=== PATIENT | male | born 1965 | race Caucasian/White ===

== ENCOUNTER 2016-10-11 12:08 | Emergency (ER) | payer MEDICARE, MEDICAID ==
[~2016-10-11] VITALS: Ht 180.3 cm; Wt 112.8 kg
[~2016-10-11 12:08] MED LIST: IBUP800T23 PO; PRED50 PO; ZITH250T PO
[2016-10-11 12:13] VITALS: BP 123/91; PULSE 77; RESP 16; TEMP 97.7; O2SAT 96
--- NOTE | 2016-10-11 12:23 | PD ---
HPI Chief Complaint: Respiratory Symptoms Time Seen by Provider: 12:23 Travel History International Travel<30 days: No Contact w/Intl Traveler<30days: No Traveled to known affect area: No History of Present Illness HPI 51-year-old male with history of asthma presents the emergency department with 3 day history of increasing sinus congestion, cough, and wheezing. Patient states he has been using his rescue inhaler and nebulizer more frequently at home. Patient states he has a history of needing prednisone and antibiotics for this type of thing. Patient denies significant fever, productive cough, nausea, vomiting, or diarrhea. He has no chest pain. He is allergic to penicillin. PFSH Past Medical History Anemia: Yes Asthma: Yes Diminished Hearing: No Gastrointestinal Disorders: Yes (HEMORRHOIDS) GERD: Yes Musculoskeletal: Yes (SCIATICA) Respiratory: Yes (asthma) Immunizations Current: Yes Social History Alcohol Use: No Tobacco Use: No Substance Use: No Allergies-Medications (Allergen,Severity, Reaction): Coded Allergies: Penicillin (Verified Allergy, Intermediate, HIVES, 10/11/16) Reported Meds & Prescriptions Reported Meds & Active Scripts Active Prednisone 20 Mg Tab 20 Mg PO BID Azithromycin 500 Mg Tab 500 Mg PO DAILY Reported Advair Diskus Inh (Fluticasone-Salmeterol Inh) 250-50 Mcg/Blist Aer 1 Puff INH BID Rinse mouth after use. Spiriva Handihaler (Tiotropium Inh) 18 Mcg Cap 18 Mcg INH DAILY 1 capsule = 18 mcg Review of Systems Except as stated in HPI: all other systems reviewed are Neg General / Constitutional: No: Fever Eyes: No: Visual changes HENT: Positive: Headaches, Sore Throat, Rhinitis, Rhinorrhea, Congestion, Earache, No: Nosebleed, Neck Stiffness, Neck Pain, Gingival Bleeding, Dental Difficulties, Ear Discharge Cardiovascular: No: Chest Pain or Discomfort Respiratory: Positive: Cough, Shortness of Breath, Wheezing, No: Sneezing Gastrointestinal: No: Nausea, Vomiting, Diarrhea, Abdominal Pain Genitourinary: No: Dysuria Musculoskeletal: No: Pain Skin: No Rash Neurologic: No: Weakness Psychiatric: No: Depression Endocrine: No: Polydipsia Hematologic/Lymphatic: No: Easy Bruising Physical Exam Narrative GENERAL: Patient appears in no acute distress. SKIN: Warm and dry. Normal color. Normal turgor. HEAD: Atraumatic. Normocephalic. EYES: Pupils equal and round. No scleral icterus. No injection or drainage. ENT: No nasal bleeding. Mucous membranes pink and moist. Patient has milky rhinitis and sinus tenderness with palpation both frontal and maxillary sinuses. Pharynx shows mild erythema and cobblestoning posterior pharynx with small amount of postnasal drip noted. No significant lymphadenopathy. Airway is patent. NECK: Trachea midline. Supple nontender without significant lymphadenopathy. CARDIOVASCULAR: Regular rate and rhythm. RESPIRATORY: No accessory muscle use. Mild to moderate diffuse wheezes throughout to auscultation. No rales or rhonchi. Breath sounds equal bilaterally. MUSCULOSKELETAL: Extremities without clubbing, cyanosis, or edema. No obvious deformities. NEUROLOGICAL: Awake and alert. No obvious cranial nerve deficits. Motor grossly within normal limits. Five out of 5 muscle strength in the arms and legs. Normal speech. PSYCHIATRIC: Appropriate mood and affect; insight and judgment normal. Data Data Last Documented VS Vital Signs Date Time Temp Pulse Resp B/P Pulse Ox O2 Delivery O2 Flow Rate FiO2 10/11/16 12:13 97.7 77 16 123/91 96 Orders Albuterol-Ipratropium Neb (Duoneb Neb) (10/11/16 12:30) Dexamethasone Inj (Decadron Inj) (10/11/16 12:30) MDM Medical Decision Making Medical Screen Exam Complete: Yes Emergency Medical Condition: Yes Medical Record Reviewed: Yes Differential Diagnosis Upper respiratory infection. Asthma with acute exacerbation. Wheezing. Narrative Course Patient is medically stable at time of exam. Patient given 125 mg Solu-Medrol IM as well as DuoNeb 1. Patient will be continued on azithromycin 500 mg once daily for 5 days. Patient also to take prednisone 20 mg twice a day for 5 days. Patient should continue his albuterol and DuoNeb nebulizers as needed. Patient follow with his primary care physician or housekeeping aide as needed. Patient can return the emergency Department with worsening symptoms if necessary. Diagnosis Primary Impression: Asthma with acute exacerbation in adult Additional Impression: Upper respiratory infection Qualified Code: J06.9 - Upper respiratory tract infection, unspecified type Referrals: Primary Care Physician Dough Molder Patient Instructions: Asthma (ED), General Instructions, Wheezing (ED) Additional Instructions: Patient given 125 mg Solu-Medrol IM as well as DuoNeb 1. Patient will be continued on azithromycin 500 mg once daily for 5 days. Patient also to take prednisone 20 mg twice a day for 5 days. Patient should continue his albuterol and DuoNeb nebulizers as needed. Patient follow with his primary care physician or housekeeping aide as needed. Patient can return the emergency Department with worsening symptoms if necessary. Med/Other Pt SpecificInfo: Prescription(s) given Scripts Prednisone 20 Mg Tab20 Mg PO BID #10 TAB Prov:Nelson Garibay MD 10/11/16 Azithromycin 500 Mg [id number] Mg PO DAILY #5 TAB Ref 0 Prov:Nelson Garibay MD 10/11/16 Disposition: 01 DISCHARGE HOME Condition: Stable Richie Quinn October 11, 2016 12:23
[2016-10-11] MEDS ORDERED: RESP: ALBUTEROL 2.5 MG/IPRATROPIUM 0.5 MG NEB (SCH) INH ONE (12:30)
[2016-10-11] MEDS ORDERED: DEXAMETHASONE SOD PHOS 20 MG/5 ML VIAL IM ONE (12:30)
[2016-10-11] MEDS ORDERED: ADVA250A INH (12:32)
[2016-10-11] MEDS ORDERED: SPIRCAP INH (12:32)
[2016-10-11] MEDS ORDERED: AZIT500T2 PO (12:52)
[2016-10-11] MEDS ORDERED: PRED20 PO (12:52)
[2016-10-11 14:10] VITALS: BP 120/86
== END 2016-10-11 14:10 | disposition home or self-care (01) ==
LOC: PHEFT 12:08
DX: J45.901 Unspecified asthma with (acute) exacerbation (principal); J06.9 Acute upper respiratory infection, unspecified; D64.9 Anemia, unspecified
CPT/HCPCS: 94664; 96372; 99283; J1100

== ENCOUNTER 2017-03-26 13:47 | Emergency (ER) | payer MEDICARE, MEDICAID ==
[~2017-03-26] VITALS: Ht 180.3 cm; Wt 112.0 kg
[~2017-03-26 13:47] MED LIST changes: +ADVA250A INH; +AZIT500T2 PO; -IBUP800T23 PO; +PRED20 PO; -PRED50 PO; +SPIRCAP INH; -ZITH250T PO
[2017-03-26 13:49] VITALS: BP 134/88; PULSE 89; RESP 18; TEMP 98.4; O2SAT 94
[2017-03-26] MEDS ORDERED: PRED20 PO ×2 (14:24)
--- NOTE | 2017-03-26 14:29 | PD ---
HPI Chief Complaint: Cold / Flu Symptoms Time Seen by Provider: 14:09 Travel History International Travel<30 days: No Contact w/Intl Traveler<30days: No Traveled to known affect area: No History of Present Illness HPI This patient complains of shortness of breath and wheezing. He has history of asthma. He's had some runny nose and congestion lately. No fever. Duration 2 days. Symptoms partially alleviated by his nebulizer treatments. PFSH Past Medical History Anemia: Yes Asthma: Yes Diminished Hearing: No Gastrointestinal Disorders: Yes (HEMORRHOIDS) GERD: Yes Musculoskeletal: Yes (SCIATICA) Respiratory: Yes (asthma) Immunizations Current: Yes Social History Alcohol Use: No Tobacco Use: No Substance Use: No Allergies-Medications (Allergen,Severity, Reaction): Coded Allergies: penicillin G (Unverified Allergy, Intermediate, HIVES, 03/26/17) Reported Meds & Prescriptions Reported Meds & Active Scripts Active Prednisone 20 Mg Tab 20 Mg PO BID Reported Advair Diskus Inh (Fluticasone-Salmeterol Inh) 250-50 Mcg/Blist Aer 1 Puff INH BID Rinse mouth after use. Spiriva Handihaler (Tiotropium Inh) 18 Mcg Cap 18 Mcg INH DAILY 1 capsule = 18 mcg Review of Systems General / Constitutional: No: Fever HENT: Positive: Rhinorrhea, No: Headaches Cardiovascular: No: Chest Pain or Discomfort Respiratory: Positive: Cough, Shortness of Breath, Wheezing Gastrointestinal: No: Abdominal Pain Genitourinary: No: Decreased Urinary Output Physical Exam Narrative GENERAL: Well-nourished, well-developed patient in no apparent distress. SKIN: Focused skin assessment reveals no rash and nodules. Skin is Warm and dry. HEAD: Atraumatic. Normocephalic. EYES: Pupils equal and round. No scleral icterus. No injection or drainage. ENT: No nasal bleeding or discharge. Mucous membranes pink and moist. NECK: Trachea midline. No JVD. CARDIOVASCULAR: Regular rate and rhythm. No murmur appreciated. RESPIRATORY: No accessory muscle use. Some expiratory wheezing noted. Breath sounds equal bilaterally. GASTROINTESTINAL: Abdomen soft, non-tender, nondistended. Hepatic and splenic margins not palpable. MUSCULOSKELETAL: No obvious deformities. No clubbing. No cyanosis. No edema. NEUROLOGICAL: Awake and alert. No obvious cranial nerve deficits. Motor grossly within normal limits. Normal speech. PSYCHIATRIC: Appropriate mood and affect; insight and judgment normal. Data Data Last Documented VS Vital Signs Date Time Temp Pulse Resp B/P (MAP) Pulse Ox O2 Delivery O2 Flow Rate FiO2 03/26/17 13:58 81 20 96 Room Air 03/26/17 13:49 98.4 134/88 (103) Orders Orders Methylprednisolone So Succ Inj (Solumedr (03/26/17 14:30) Albuterol-Ipratropium Neb (Duoneb Neb) (03/26/17 14:30) MDM Medical Decision Making Medical Screen Exam Complete: Yes Emergency Medical Condition: Yes Medical Record Reviewed: Yes Differential Diagnosis Asthma exacerbation, bronchitis, URI, pneumonia Narrative Course I have reviewed the patient's electronic medical record. Presentation is consistent with a asthma exacerbation set off by viral respiratory illness I gave him a nebulizer treatment Gave him injection of Solu-Medrol Prescription for prednisone for 5 days written He has a nebulizer and inhaler with him and is nonsmoker Diagnosis Primary Impression: Asthma with acute exacerbation in adult Qualified Codes: J45.41 - Moderate persistent asthma with (acute) exacerbation Additional Impression: Upper respiratory infection Qualified Codes: J00 - Acute nasopharyngitis [common cold] Additional Instructions: The patient was advised to follow up with their physician and return if they worsen. Med/Other Pt SpecificInfo: Prescription(s) given Scripts Prednisone (Prednisone) 20 Mg Tab 20 MG PO BID, #10 TAB Prov: Dipesh Alcaraz MD 03/26/17 Disposition: 01 DISCHARGE HOME Condition: Stable Dipesh Alcaraz MD Mar 26, 2017 14:29
[2017-03-26] MEDS ORDERED: methylPREDNISolone SOD SUCC 125 MG/2 ML VIAL IM ONE ×2 (14:30)
[2017-03-26] MEDS ORDERED: RESP: ALBUTEROL 2.5 MG/IPRATROPIUM 0.5 MG NEB (SCH) NEB ONE ×2 (14:30)
== END 2017-03-26 15:03 | disposition home or self-care (01) ==
LOC: NEPD 13:47
DX: J45.41 Moderate persistent asthma with (acute) exacerbation (principal); J06.9 Acute upper respiratory infection, unspecified
CPT/HCPCS: 94664; 96372; 99284; J2930

== ENCOUNTER 2017-07-14 11:06 | Emergency (ER) | payer MEDICARE, MEDICAID ==
[~2017-07-14 11:06] MED LIST changes: -AZIT500T2 PO
[2017-07-14 11:17] VITALS: BP 123/89; PULSE 78; RESP 22; TEMP 98; O2SAT 95
[2017-07-14] MEDS ORDERED: NEBUMIS6 (11:22)
[2017-07-14] MEDS ORDERED: VENTAER INH (11:22)
--- NOTE | 2017-07-14 11:43 | PD ---
HPI Chief Complaint: Respiratory Symptoms Time Seen by Provider: 11:27 Travel History International Travel<30 days: No Contact w/Intl Traveler<30days: No Traveled to known affect area: No History of Present Illness HPI Patient is a 51-year-old male who comes in complaining of an asthma exacerbation for 30 minutes. He says it started while he was walking because his car broke down. He says he thinks it is due to stress. He did not have his albuterol inhaler with him, so he was unable to use it. He tried using his mother's inhaler, which she says is not the same and did not help. He says he had a cold last week, but it is improving. He says this feels like his typical asthma. He denies chest pain or leg swelling. He denies fever or chills. Nothing seems to improve his symptoms. Severity is moderate. PFSH Past Medical History Anemia: Yes Asthma: Yes Diminished Hearing: No Gastrointestinal Disorders: Yes (HEMORRHOIDS) GERD: Yes Musculoskeletal: Yes (SCIATICA) Respiratory: Yes (asthma) Immunizations Current: Yes Social History Alcohol Use: No Tobacco Use: No Substance Use: No Allergies-Medications (Allergen,Severity, Reaction): Coded Allergies: penicillin G (Unverified Allergy, Intermediate, HIVES, 07/14/17) Reported Meds & Prescriptions Reported Meds & Active Scripts Active Reported [Nebulizer] Ventolin Hfa 18 GM Inh (Albuterol Sulfate) 90 Mcg/Act Aer 1 Puff INH Q4H PRN Review of Systems Except as stated in HPI: all other systems reviewed are Neg General / Constitutional: No: Fever, Chills HENT: No: Headaches, Lightheadedness Cardiovascular: No: Chest Pain or Discomfort Respiratory: Positive: Shortness of Breath Gastrointestinal: No: Nausea, Vomiting Musculoskeletal: No: Myalgias, Edema Skin: No Rash, No Change in Pigmentation Neurologic: No: Weakness, Dizziness Physical Exam Narrative GENERAL: Awake and alert, no acute distress. SKIN: Focused skin assessment warm/dry. HEAD: Atraumatic. Normocephalic. EYES: Pupils equal and round. No scleral icterus. ENT: Mucous membranes pink and moist. NECK: Trachea midline. No JVD. CARDIOVASCULAR: Regular rate and rhythm. No murmur appreciated. RESPIRATORY: No accessory muscle use. Occasional wheezing, decreased breath sounds throughout the lungs. Breath sounds equal bilaterally. MUSCULOSKELETAL: No obvious deformities. No clubbing. No cyanosis. No edema. NEUROLOGICAL: Awake and alert. No obvious cranial nerve deficits. Motor grossly within normal limits. Normal speech. PSYCHIATRIC: Appropriate mood and affect; insight and judgment normal. Data Data Last Documented VS Vital Signs Date Time Temp Pulse Resp B/P (MAP) Pulse Ox O2 Delivery O2 Flow Rate FiO2 07/14/17 13:13 84 20 129/83 (98) 100 07/14/17 11:17 98.0 Orders Orders Complete Blood Count With Diff (07/14/17 11:37) Comprehensive Metabolic Panel (07/14/17 11:37) Iv Access Insert/Monitor (07/14/17 11:37) Ecg Monitoring (07/14/17 11:37) Oximetry (07/14/17 11:37) Oxygen Administration (07/14/17 11:37) Chest, Single Ap (07/14/17 11:37) Sodium Chloride 0.9% Flush (Ns Flush) (07/14/17 11:45) Methylprednisolone So Succ Inj (Solumedr (07/14/17 11:45) Albuterol-Ipratropium Neb (Duoneb Neb) (07/14/17 11:45) Labs Laboratory Tests Test 07/14/17 11:50 White Blood Count 9.7 TH/MM3 Red Blood Count 4.70 MIL/MM3 Hemoglobin 13.6 GM/DL Hematocrit 41.8 % Mean Corpuscular Volume 88.9 FL Mean Corpuscular Hemoglobin 29.0 PG Mean Corpuscular Hemoglobin Concent 32.6 % Red Cell Distribution Width 12.8 % Platelet Count 356 TH/MM3 Mean Platelet Volume 8.6 FL Neutrophils (%) (Auto) 54.1 % Lymphocytes (%) (Auto) 31.9 % Monocytes (%) (Auto) 7.2 % Eosinophils (%) (Auto) 6.2 % Basophils (%) (Auto) 0.6 % Neutrophils # (Auto) 5.2 TH/MM3 Lymphocytes # (Auto) 3.1 TH/MM3 Monocytes # (Auto) 0.7 TH/MM3 Eosinophils # (Auto) 0.6 TH/MM3 Basophils # (Auto) 0.1 TH/MM3 CBC Comment DIFF FINAL Differential Comment Blood Urea Nitrogen 16 MG/DL Creatinine 0.94 MG/DL Random Glucose 84 MG/DL Total Protein 6.9 GM/DL Albumin 3.5 GM/DL Calcium Level 8.4 MG/DL Alkaline Phosphatase 53 U/L Aspartate Amino Transf (AST/SGOT) 18 U/L Alanine Aminotransferase (ALT/SGPT) 30 U/L Total Bilirubin 0.4 MG/DL Sodium Level 140 MEQ/L Potassium Level 3.9 MEQ/L Chloride Level 107 MEQ/L Carbon Dioxide Level 27.2 MEQ/L Anion Gap 6 MEQ/L Estimat Glomerular Filtration Rate 84 ML/MIN [facility] Medical Decision Making Medical Screen Exam Complete: Yes Emergency Medical Condition: Yes Medical Record Reviewed: Yes Differential Diagnosis Asthma exacerbation versus URI versus pneumonia Narrative Course Patient is a 51-year-old male who comes in complaining of an asthma exacerbation. Exam shows diffuse wheezing and decreased breath sounds. IV established, labs sent. Labs show no acute abnormalities. Chest x-ray performed shows no acute abnormalities. Patient given 3 DuoNeb's and a dose of Solu-Medrol. His lungs are now clear to auscultation with good air movement. Patient reports feeling better. He has an albuterol inhaler at home. He will be discharged with a prescription for prednisone. Advised follow-up with his doctor. Advised to return to the ED as needed for any worsening symptoms. Diagnosis Primary Impression: Asthma with acute exacerbation in adult Qualified Codes: J45.901 - Unspecified asthma with (acute) exacerbation Patient Instructions: Asthma (ED), General Instructions Additional Instructions: Start the prednisone tomorrow as you had a dose of steroids earlier today. Use her albuterol inhaler as needed for shortness of breath. Follow-up with your doctor. Return to the ED as needed for any worsening symptoms. Scripts Prednisone (Prednisone) 50 Mg Tab 50 MG PO DAILY for 4 Days, #4 TAB 0 Refills Prov: Dina Longo MD 07/14/17 Disposition: 01 DISCHARGE HOME Condition: Stable Dina Longo MD Jul 14, 2017 11:43
[2017-07-14] MEDS ORDERED: methylPREDNISolone SOD SUCC 125 MG/2 ML VIAL IV PUSH ONE (11:45)
[2017-07-14] MEDS ORDERED: SODIUM CHLORIDE 0.9% FLUSH 10 ML FLUSH IVF PRN (11:45)
--- NOTE | 2017-07-14 11:51 | RADRPT ---
EXAM DATE/TIME: 07/14/2017 11:41 [facility] COMPARISON: CHEST SINGLE AP, January 17, 2015, 14:21. INDICATIONS : Short of breath. MEDICAL HISTORY : Asthma. Sciatica. SURGICAL HISTORY : Herniated disc repair. ENCOUNTER: Subsequent ACUITY: 1 day PAIN SCORE: 0/10 LOCATION: chest FINDINGS: A single view of the chest demonstrates the lungs to be symmetrically aerated without evidence of mas s, infiltrate or effusion. The cardiomediastinal contours are unremarkable. Osseous structures are intact. CONCLUSION: No acute cardiopulmonary process. Ad Tellez MD on July 14, 2017 at 11:48 Board Certified Radiologist. This report was verified electronically.
[2017-07-14 11:53] VITALS: O2SAT 96
[2017-07-14 12:08] LABS: AUTOMATED NEUTROPHIL # 5.2 TH/MM3 (1.8-7.7); BASOPHIL # 0.1 TH/MM3 (0-0.2); BASOPHIL % 0.6 % (0.0-2.0); EOSINOPHIL # 0.6 TH/MM3 (0-0.4); EOSINOPHIL % 6.2 % (0.0-4.0); HEMATOCRIT 41.8 % (39.0-51.0); HEMOGLOBIN 13.6 GM/DL (13.0-17.0); LYMPH % 31.9 % (9.0-44.0); LYMPHOCYTE # 3.1 TH/MM3 (1.0-4.8); MEAN CELL VOLUME 88.9 FL (80.0-100.0); MEAN CORPUSCULAR HGB CONC 32.6 % (32.0-36.0); MEAN PLATELET VOLUME 8.6 FL (7.0-11.0); MONO % 7.2 % (0.0-8.0); MONOCYTE # 0.7 TH/MM3 (0-0.9); NEUT % 54.1 % (16.0-70.0); PLATELET COUNT 356 TH/MM3 (150-450); RED CELL DISTRIBUTION WIDTH 12.8 % (11.6-17.2); WHITE BLOOD COUNT 9.7 TH/MM3 (4.0-11.0)
[2017-07-14] MEDS: RESP: ALBUTEROL 2.5 MG/IPRATROPIUM 0.5 MG NEB (SCH) INH ×2 (12:15→12:16)
[2017-07-14 12:16] LABS: CHLORIDE 107 MEQ/L (98-107); SODIUM (NA) 140 MEQ/L (136-145)
[2017-07-14 12:19] LABS: CALCIUM 8.4 MG/DL (8.5-10.1)
[2017-07-14 12:20] LABS: ALBUMIN 3.5 GM/DL (3.4-5.0); BICARBONATE 27.2 MEQ/L (21.0-32.0); BLOOD UREA NITROGEN 16 MG/DL (7-18); GLUCOSE,RANDOM 84 MG/DL (74-106)
[2017-07-14 12:23] LABS: ALT (GPT) 30 U/L (12-78); AST (GOT) 18 U/L (15-37); CREATININE 0.94 MG/DL (0.60-1.30); GLOMERULAR FILTRATION RATE 84 ML/MIN (>89)
[2017-07-14 12:24] LABS: TOTAL BILIRUBIN ADULT 0.4 MG/DL (0.2-1.0); TOTAL PROTEIN 6.9 GM/DL (6.4-8.2)
[2017-07-14 12:25] LABS: ALKALINE PHOSPHATASE 53 U/L (45-117)
[2017-07-14 13:13] VITALS: BP 129/83; PULSE 84; RESP 20; O2SAT 100
[2017-07-14] MEDS ORDERED: PRED50 PO (13:28)
== END 2017-07-14 13:41 | disposition home or self-care (01) ==
LOC: PHED 11:06
DX: J45.901 Unspecified asthma with (acute) exacerbation (principal)
CPT/HCPCS: 71045; 80053; 85025; 94640; 94664; 96374; 99284; J2930